=== PATIENT | female | born 1985 | race African-American/Black ===

== ENCOUNTER 2017-11-30 08:16 | Emergency (ER) | payer SELFPAY ==
--- NOTE | 2017-11-30 08:30 | ED Physician Documentation ---
General Adult - HISTORIAN Historian: patient - HPI Chief Complaint: General Adult Additional Information: Developed a sore on the right buttocks, no precipitating factor (?bug bite). Has been getting bigger and has started to drain some. No fever or chills noted. Onset: days ago (5 days ago) Timing: still present - ROS CONST: other. denies: fever, chills - PAST HX Past History: hypertension Other History: other (renal artery stenosis) Surgeries/Procedures: BTL, other (right renal artery stint) Immunizations: referred to PCP Allergies/Adverse Reactions: Allergies Allergy/AdvReac Type Severity Reaction Status Date / Time No Known Allergies Allergy Verified 11/30/17 08:56 Home Medications: Ambulatory Orders Medication Instructions Recorded Aspirin [Aspir-Low] 81 mg PO D 11/30/17 Atenolol 100 mg PO D 11/30/17 Buspirone HCl [Buspar] 7.5 mg PO D 11/30/17 Cephalexin [Keflex] 500 mg PO TID #21 capsule 11/30/17 Citalopram Hydrobromide [Celexa] 40 mg PO D 11/30/17 Hydralazine HCl 25 mg PO QID PRN 11/30/17 Hydroxyzine Pamoate [Vistaril] 25 mg PO D 11/30/17 SUMAtriptan SUCCINATE [Imitrex] 25 mg PO D 11/30/17 Spironolactone 50 mg PO BID 11/30/17 amLODIPine BESYLATE [Norvasc] 50 mg PO D 11/30/17 - SOCIAL HX Smoking History: less than 1 pack/day (1/5 ppd) Alcohol Use: occasionally Drug Use: none - FAMILY HX Family History: No - REVIEWED ASSESSMENTS Nursing Assessment Reviewed: Yes Vitals Reviewed: Yes General Adult Physical Exam - PHYSICAL EXAM GENERAL APPEARANCE: no distress NECK: normal inspection RESPIRATORY: no resp distress CVS: reg rate & rhythm, heart sounds normal, equal pulses, no murmur SKIN: other (2.8 indurated area ont he right buttocks, no fluctuance noted, no drainagae noted. Tender to palpation. ) NEURO: oriented X3 Discharge Clincal Impression: Cellulitis of buttock, right Prescriptions: Cephalexin [Keflex] 500 mg PO TID #21 capsule Referrals: Primary Doctor,No [Primary Care Provider] - 2 Days Additional Instructions: Try soaking in some warm soapy water. Take cephalexin three times a day as directed. Continue to monitor wound. If not improving within the next week to follow-up with your primary provider. Condition: Stable Disposition: 01 HOME, SELF-CARE Decision to Admit: NO Date of Decison to Admit: 11/30/17 Decision Time: 08:38
[2017-11-30 09:36] VITALS: BP 148/92
== END 2017-11-30 09:05 | disposition home or self-care (01) ==
LOC: ED 08:16
DX: L03.317 Cellulitis of buttock (principal)
CPT/HCPCS: 99282

== ENCOUNTER 2018-05-11 13:30 | Emergency (ER) | payer OTHER ==
--- NOTE | 2018-05-11 13:53 | ED Physician Documentation ---
Upper Extremity Problem - HISTORIAN Historian: patient - HPI Stated Complaint: fingers locking up Chief Complaint: Upper Extremity Problem Additional Information: Patient presents to ED with a 2 week history of bilateral index finger and thumb pain, alternating with tingling going up her arms. She states that at times her fingers/thumb lock up and she is unable to move them for a short period of time. She was diagnosed with carpal tunnel several years ago and given a wrist brace, however, it was damaged and she threw it away. Location: other (index finger and thumb) Onset: days ago (14) Timing: pain intermittent, worse since Duration: intermittent episodes Recent Injury: No Where: home Severity: mild Associated Symptoms: denies: fever Exacerbated By: other (use of hands) Relieved By: rest Quality: pain, other (fingers locking up) Further Comments: no - ROS CONST: no problems EYES/ENT: none CVS/RESP: none GI/: none NEURO/PSYCH: denies: headache - PAST HX Past History: none Other History: none Surgeries/Procedures: none Allergies/Adverse Reactions: Allergies Allergy/AdvReac Type Severity Reaction Status Date / Time No Known Allergies Allergy Verified 05/11/18 13:50 Home Medications: Ambulatory Orders Medication Instructions Recorded Aspirin [Aspir-Low] 81 mg PO D 11/30/17 Atenolol 100 mg PO D 11/30/17 Buspirone HCl [Buspar] 7.5 mg PO D 11/30/17 Cephalexin [Keflex] 500 mg PO TID #21 capsule 11/30/17 Citalopram Hydrobromide [Celexa] 40 mg PO D 11/30/17 Hydralazine HCl 25 mg PO QID PRN 11/30/17 Hydroxyzine Pamoate [Vistaril] 25 mg PO D 11/30/17 SUMAtriptan SUCCINATE [Imitrex] 25 mg PO D 11/30/17 Spironolactone 50 mg PO BID 11/30/17 amLODIPine BESYLATE [Norvasc] 50 mg PO D 11/30/17 Methylprednisolone [Medrol] 4 mg PO DIRECTED #1 tab.ds.pk 05/11/18 - SOCIAL HX Smoking History: non-smoker Alcohol Use: none Drug Use: none - FAMILY HX Family History: none - VITAL SIGNS Vital Signs: Vital Signs Temp Pulse Resp BP Pulse Ox 148/92 11/30/17 09:34 - REVIEWED ASSESSMENTS Nursing Assessment Reviewed: Yes Vitals Reviewed: Yes Upper Extremity Problem - EXAM General Appearance: no acute distress, alert Skin: warm/dry Shoulder Exam: non-tender Elbow/Forearm Exam: normal inspection Wrist Exam: normal inspection Hand Exam: normal inspection Neuro/Tendon: normal sensation, normal motor functions EENT: ENT inspection normal CVS: reg rate & rhythm, heart sounds normal Vascular: no vascular compromise Peripheral: sensation nml, motor nml Central: oriented X3 Respiratory: no resp. distress Abdomen: non-tender Discharge Clincal Impression: Trigger finger of both hands, Accelerated essential hypertension Prescriptions: Methylprednisolone [Medrol] 4 mg PO DIRECTED #1 tab.ds.pk Referrals: Primary Doctor,No [Primary Care Provider] - 2 Days Additional Instructions: 1. tylenol and/or ibuprofen as needed for pain 2. Apply heat/ice to affected area as needed for comfort 3. Follow up with PCP within 3 days for blood pressure recheck 4. Return to ER with new or worsening symptoms. Condition: Stable Disposition: 01 HOME, SELF-CARE Decision to Admit: NO Date of Decison to Admit: 05/11/18 Decision Time: 14:03
[2018-05-11] MEDS ORDERED: CloNIDine HCL 0.1 MG TABLET PO ONE (14:04)
[2018-05-11 14:13] VITALS: BP 154/110
== END 2018-05-11 14:12 | disposition home or self-care (01) ==
LOC: ED 13:30
DX: R20.2 Paresthesia of skin (principal); I10 Essential (primary) hypertension
CPT/HCPCS: 99282; 99283

== ENCOUNTER 2019-03-13 14:26 | Outpatient (CLI) | payer OTHER | END 2019-03-13 14:31 | LOC: LABRHC 14:26 | PROVIDERS: ATTEND Nurse Practitioner Family | DX: Z01.419 Encounter for gynecological examination (general) (routine) without abnormal findings (principal); Z20.2 Contact with and (suspected) exposure to infections with a predominantly sexual mode of transmission | CPT/HCPCS: 87491; 87591; 88148; G0143 ==